=== PATIENT | male | born 1930 | race Caucasian/White ===

== ENCOUNTER → 2016-12-15 | Outpatient (CLI) | payer MEDICARE ==
--- NOTE | 2016-12-15 10:36 | RAD ---
Exam performed: Right lower extremity venous Doppler. Clinical Indication: Right leg pain Date of Service:12/15/16 Comparison : None available Discussion: Multiple longitudinal and transverse high resolution real-time images of the venous system of right lower extremity were obtained with color and Doppler sampling and spectral analysis. The common femoral, superficial femoral, popliteal and proximal calf veins are all patent and demonstrate normal flow and compressibility. Normal respiratory phasicity and augmentation is present. Impression: Normal color duplex ultrasound of the venous system of right lower extremity.
== END | disposition home or self-care (01) ==
LOC: US 09:54
PROVIDERS: ATTEND Urology
DX: M79.661 Pain in right lower leg (principal); C61 Malignant neoplasm of prostate
CPT/HCPCS: 93971